=== PATIENT | female | born 1980 | race Caucasian/White ===

== ENCOUNTER → 2020-04-19 12:46 | Outpatient (BNVA) | payer MEDICAID, SELFPAY | PROVIDERS: PCP Internal Medicine; Referring Provider Internal Medicine; Visit Provider Surgery | DX: L72.9 Follicular cyst of the skin and subcutaneous tissue, unspecified (principal) | CPT/HCPCS: 99202 ==

== ENCOUNTER 2020-05-11 07:52 | Outpatient (REF) | payer MEDICAID, SELFPAY ==
[2020-05-11 08:02] VITALS: BP 127/79; PULSE 75; RESP 16; TEMP 36.8; O2SAT 98
[2020-05-11 08:04] VITALS: BMI 31.3
[2020-05-11 08:36] VITALS: BP 151/86; PULSE 74; RESP 16; O2SAT 98
--- NOTE | 2020-05-11 09:30 | PM.OP ---
Brief Operative Note Date of Service: 05/11/20 Pre-op diagnosis: Scalp cyst x2 Post-op diagnosis: same Procedure: Excision of scalp cyst x2 under local anesthesia Surgeon: Yao Sanchez MD Estimated blood loss (mL): 5 Pathology: other (Scalp cysts) Condition: stable Disposition: other (Home)
--- NOTE | 2020-05-11 09:56 | OP_ITS ---
SURGEON: Yao Sanchez MD INDICATIONS: The patient is a 40-year-old female, with a note of 2 cystic indurations on the scalp at the parieto-occipital area. Each of this was about 1 cm in size. She had described swelling and drainage periodically. She understood the technique of excision under local anesthesia. She was aware of the risks, benefits, and alternatives. PREOPERATIVE DIAGNOSIS: Scalp cyst x2. POSTOPERATIVE DIAGNOSIS: Scalp cyst x2. PROCEDURE PERFORMED: Excision of scalp cyst x2. ESTIMATED BLOOD LOSS: COMPLICATIONS: ANESTHESIA: ASSISTANTS: SPECIMENS: DESCRIPTION OF PROCEDURE: She was brought to the minor procedure room. She was placed in prone position. The area of the cysts was prepped and draped. These were adjacent to each other. A surgical time-out had been done. The area was prepped and draped in usual sterile fashion. Lidocaine 1% was used for local anesthesia on both areas. I then made an incision in the skin overlying the cystic induration using blade #15, it was carried down to full-thickness skin and subcutaneous fat. The capsule was noted to be sharply excised using scissors. This was fragmented. I removed the entire capsule and bluntly debrided the cavity. I closed this with multiple nylon 3-0 sutures. The same procedure was duplicated on the second cyst adjacent to this. Again, I made an incision in the skin using blade #15 and this was carried down to full-thickness skin and subcutaneous fat until the capsule was visualized. I excised the capsule sharply. There were actually about 2 small capsules in the same area. I excised these using the Metzenbaum scissors and this was sent as specimen together with the first excision site. I bluntly debrided the cavity again with a gauze. I closed this with multiple nylon 3-0 interrupted sutures as well. Bacitracin dressing was applied. She tolerated the procedure well and there were no complications noted. She will be seen in the office for followup in 2 weeks. MD CHRIS Osorio/SANJIV / [id number]
== END 2020-05-11 07:53 | disposition home or self-care (01) ==
LOC: HO.MS 07:52
PROVIDERS: PCP Internal Medicine; Visit Provider Surgery
PROC: (CPT 11421; principal; 2020-05-11 08:00)
DX: L72.11 Pilar cyst (principal)
CPT/HCPCS: 11421; 11422; 88304

== ENCOUNTER → 2020-05-22 09:24 | Outpatient (BNVA) | payer MEDICAID, SELFPAY | PROVIDERS: PCP Internal Medicine; Visit Provider Surgery | DX: L72.9 Follicular cyst of the skin and subcutaneous tissue, unspecified (principal) | CPT/HCPCS: 99212 ==